=== PATIENT | male | born 1995 | race Caucasian/White ===

== ENCOUNTER 2017-07-20 21:45 | Emergency (ER) | payer OTHER ==
[2017-07-20] MEDS ORDERED: Bacitracin Oint 1 GM U/D Packet TOP ONE (22:21)
--- NOTE | 2017-07-20 22:22 | EDM.PDOC ---
ED HPI GENERAL MEDICAL PROBLEM - General Chief Complaint: Skin Complaint Stated Complaint: RIGHT THUMB FISHHOOK Time Seen by Provider: 07/20/17 22:18 Source of Information: Reports: Patient, RN Notes Reviewed History Limitations: Reports: No Limitations - History of Present Illness INITIAL COMMENTS - FREE TEXT/NARRATIVE: 22-year-old gentleman presents to emergency department a complaint of fishhook to his right thumb, this occurred earlier today he has no functional complaints - Related Data Allergies Allergy/AdvReac Type Severity Reaction Status Date / Time No Known Allergies Allergy Verified 07/20/17 22:04 Home Meds: Home Meds NK [No Known Home Meds] 07/20/17 [History] Past Medical History - Past Health History Medical/Surgical History: Denies Medical/Surgical History Social & Family History - Tobacco Use Smoking Status *Q: Never Smoker ED ROS GENERAL - Review of Systems Review Of Systems: See Below Constitutional: Reports: No Symptoms Skin: Reports: Wound Neurological: Reports: No Symptoms ED EXAM, SKIN/RASH Exam: See Below Text/Narrative:: [place] embedded distal aspect of right thumb full range of motion all digits radial pulses +2 sensation is intact ED SKIN PROCEDURES - Foreign Body Removal Consent Obtained:: Patient Performing Doctor:: Officer[facility] Other Location Comment:: [place] right thumb Anesthesia Type: Local Findings:: Digital block was performed on the thumb after adequate anesthesia fishhook was removed with an 18-gauge needle which cover the oj and back the fishhook out Complications:: No Course - Vital Signs Last Recorded V/S: Last Vital Signs Temp 98.0 F 07/20/17 22:08 Pulse 99 07/20/17 22:08 Resp 16 07/20/17 22:08 BP 142/85 H 07/20/17 22:08 Pulse Ox 98 07/20/17 22:08 - Orders/Labs/Meds Meds: Medications Discontinued Medications Generic Name Dose Route Start Last Admin Trade Name Zohra PRN Reason Stop Dose Admin Bacitracin 1 dose 07/20/17 22:21 07/20/17 22:34 Bacitracin Oint 1 Gm TOP 07/20/17 22:22 1 dose ONETIME ONE Administration Lidocaine HCl 5 ml 07/20/17 22:21 07/20/17 22:34 Xylocaine-Mpf 1% INJECT 07/20/17 22:22 5 ml ONETIME ONE Administration Departure - Departure Time of Disposition: 23:06 Disposition: Home, Self-Care 01 Condition: Good Clinical Impression: Fish hook injury of right thumb Qualifiers: Encounter type: initial encounter Qualified Code(s): S69.91XA - Unspecified injury of right wrist, hand and finger(s), initial encounter - Discharge Information Referrals: PCP,None [Primary Care Provider] - Forms: ED Department Discharge Additional Instructions: Follow-up with primary care as needed - Assessment/Plan Plan: Assessment Acuity = acute Site and laterality = foreign body right thumb Etiology = fishhook Manifestations = none Location of injury = Home Lab values = none Plan Follow-up primary care as needed This note was dictated using [employer] voice recognition software please call with any questions on syntax or grammar.
== END 2017-07-20 23:14 | disposition home or self-care (01) ==
LOC: JP.ED 21:45
DX: S60.351A Superficial foreign body of right thumb, initial encounter (principal); W45.8XXA Other foreign body or object entering through skin, initial encounter
CPT/HCPCS: 64450; 99283-25